=== PATIENT | female | born 1995 | race American Indian/Alaskan Native ===

== ENCOUNTER 2018-04-09 14:18 | Emergency (ER) | payer BC ==
[2018-04-09 15:28] VITALS: BP 132/78
== END 2018-04-09 15:25 | disposition left against medical advice (07) ==
LOC: ED 14:18
DX: R56.9 Unspecified convulsions (principal); Z53.21 Procedure and treatment not carried out due to patient leaving prior to being seen by health care provider

== ENCOUNTER 2021-02-15 01:14 | Emergency (ER) | payer MEDICARE ==
[2021-02-15 02:27] LABS: Basophils % (Auto) 0.9 % (0.0-1.8); Eosinophils % (Auto) 0.3 % (0.0-4.3); Hematocrit 38.7 % (30.3-42.9); Lymphocytes # (Auto) 1.1 K/mm3 (1.2-5.4); Lymphocytes % (Auto) 22.3 % (13.4-35.0); Mean Corpuscular HGB Conc 34 % (30-34); Mean Corpuscular Volume 88 fl (79-97); Monocytes # (Auto) 0.3 K/mm3 (0.0-0.8); Monocytes % (Auto) 5.3 % (0.0-7.3); Platelet Count 136 K/mm3 (140-440); Red Blood Count 4.38 M/mm3 (3.65-5.03); Red Cell Distribution Width 13.3 % (13.2-15.2)
[2021-02-15 02:28] LABS: Blood Urea Nitrogen 11 mg/dL (7-17); Calcium 8.8 mg/dL (8.4-10.2); Hemolysis Index 4
[2021-02-15 02:32] LABS: BUN/Creatinine Ratio 16
--- NOTE | 2021-02-15 02:32 | Emergency Department Report ---
ED Psych HPI - General Chief Complaint: Psych Stated Complaint: SI/DRUG OD Time Seen by Provider: 02/15/21 02:14 Source: patient Mode of arrival: Ambulatory - History of Present Illness Initial Comments: Patient is 25 years old female with history of schizophrenia. Patient brought to the emergency room for evaluation of possible suicidal attempt. Patient stated that she did not took her medication for the last 7 days and she decided to take it altogether at one time. Patient stated that she took 7 tablets of Vraylar 1.5 mg and 5 tablets of Ativan 0.5 mg. Patient stated that she did not want to kill herself. Patient also found to have multiple abrasion to the left thigh. Bleeding controlled. Patient also had old scars from previous self injury to the left thigh and left forearm. Patient admitted that she is hearing voices but she is refusing to say what they are telling her. She denied visual hallucination. Patient denied also homicidal ideation. Poison control contacted and advised supportive care. MD Complaint: suicidal ideation -: Sudden, This evening Associated Psychiatric Symptoms: suicidal ideation, auditory hallucinations Associated Symptoms: denies other symptoms If Self Harm: admits thoughts of, has acted on plan, intentional overdose, self- inflicted trauma - Related Data Allergies Allergy/AdvReac Type Severity Reaction Status Date / Time steroids Allergy Unknown Uncoded 02/15/21 01:37 ED Review of Systems ROS: Stated complaint: SI/DRUG OD Other details as noted in HPI Comment: All other systems reviewed and negative Constitutional: denies: chills, fever Respiratory: denies: cough, shortness of breath, SOB with exertion Cardiovascular: denies: chest pain, palpitations Gastrointestinal: denies: abdominal pain Musculoskeletal: denies: back pain Neurological: denies: headache, weakness Psychiatric: depression, auditory hallucinations, suicidal thoughts. denies: visual hallucinations, homicidal thoughts ED Past Medical Hx - Past Medical History Previous Medical History?: Yes Hx Seizures: Yes - Surgical History Past Surgical History?: No - Social History Smoking Status: Never Smoker Substance Use Type: Alcohol, Marijuana ED Physical Exam - General Limitations: No Limitations General appearance: alert, in no apparent distress - Head Head exam: Present: atraumatic, normocephalic, normal inspection - Eye Eye exam: Present: normal appearance, PERRL - ENT ENT exam: Present: normal exam, normal orophraynx, mucous membranes moist - Neck Neck exam: Present: normal inspection, full ROM. Absent: tenderness, meningismus - Respiratory Respiratory exam: Present: normal lung sounds bilaterally - Cardiovascular Cardiovascular Exam: Present: regular rate, normal rhythm, normal heart sounds - GI/Abdominal GI/Abdominal exam: Present: soft, normal bowel sounds. Absent: distended, tenderness, guarding, rebound, rigid, organomegaly, mass, bruit, pulsatile mass, hernia - Extremities Exam Extremities exam: Present: normal inspection, full ROM, normal capillary refill. Absent: tenderness, pedal edema, calf tenderness - Back Exam Back exam: Present: normal inspection, full ROM. Absent: CVA tenderness (R), CVA tenderness (L) - Neurological Exam Neurological exam: Present: alert, oriented X3, CN II-XII intact, normal gait, reflexes normal. Absent: motor sensory deficit - Psychiatric Psychiatric exam: Present: normal mood - Skin Skin exam: Present: warm, intact, normal color ED Course Vital Signs 02/15/21 02/15/21 02/15/21 01:32 06:00 09:04 Temperature 98.6 F 98.5 F 98.0 F Pulse Rate 92 H 75 82 Respiratory 16 18 20 Rate Blood Pressure 120/64 Blood Pressure 105/58 138/74 [Left] O2 Sat by Pulse 98 99 98 Oximetry ED Medical Decision Making - Lab Data Result diagrams: 02/15/21 01:42 02/15/21 01:42 - Medical Decision Making Patient is 25 years old female with history of schizophrenia. Patient brought to the emergency room for evaluation of possible suicidal attempt. Patient s tated that she did not took her medication for the last 7 days and she decided to take it altogether at one time. Patient stated that she took 7 tablets of Vraylar 1.5 mg and 5 tablets of Ativan 0.5 mg. Patient stated that she did not want to kill herself. Patient also found to have multiple abrasion to the left thigh. Bleeding controlled. Patient also had old scars from previous self injury to the left thigh and left forearm. Patient admitted that she is hearing voices but she is refusing to say what they are telling her. She denied visual hallucination. Patient denied also homicidal ideation. Poison control contacted and advised supportive care. Labs reviewed and is unremarkable. Patient remained alert, oriented x3 in no acute distress. No drowsiness. Patient is medically cleared to be evaluated by psychiatric team. Critical care attestation.: If time is entered above; I have spent that time in minutes in the direct care of this critically ill patient, excluding procedure time. ED Disposition Clinical Impression: Acute psychosis, Drug overdose, intentional Disposition: [id number]/TX-[id number] ANOTHER TYPE [facility]TH[facility]ARE Is pt being admited?: No Condition: Stable Referrals: PRIMARY CARE, [Primary Care Provider] - 3-5 Days
[2021-02-15 03:49] LABS: Alanine Aminotransferase 9 units/L (7-56); Albumin 4.4 g/dL (3.9-5)
[2021-02-15 03:56] LABS: Bilirubin,Direct < 0.2 mg/dL (0-0.2); Hepatitis B Surface Antigen Non-Reactive (Negative); Hepatitis C Virus Antibody Non-Reactive (NonReactive)
[2021-02-15] MEDS ORDERED: TETANUS,DIPH,PERTUSS(ACELL) VACCINE 0.5 ML SYRINGE IM ONE (05:21)
[2021-02-15 10:06] VITALS: BP 138/74
--- NOTE | 2021-02-15 10:54 | Consultation ---
History of Present Illness - Reason for Consult Consult date: 02/15/21 Reason for consult: SI/OD - History of Present Psychiatric Illness Per ED Note: Patient is 25 years old female with history of schizophrenia. Patient brought to the emergency room for evaluation of possible suicidal attempt. Patient stated that she did not took her medication for the last 7 days and she decided to take it altogether at one time. Patient stated that she took 7 tablets of Vraylar 1.5 mg and 5 tablets of Ativan 0.5 mg. Patient stated that she did not want to kill herself. Patient also found to have multiple abrasion to the left thigh. Bleeding controlled. Patient also had old scars from previous self injury to the left thigh and left forearm. Patient admitted that she is hearing voices but she is refusing to say what they are telling her. She denied visual hallucination. Patient denied also homicidal ideation. Poison control contacted and advised supportive care. 25y/o Belle [place] was seen today, She appears withdrawn and makes poor eye contact. She appears to be responding to internal stimuli. She's talking very low almost at a whisper. She's not forthcoming about the situation as to why she's here. The patient says "I took my medication in surplus because I had missed some days." The patient says "I wasn't trying to kill myself." She then tells me that "I was having an episode and I took them because I wanted it to stop and make it go away." The patient verbalizes "hearing voices." But states "I'm not sure what they are saying." She then denies hearing voices and state, "that was yesterday." The patient has old scars to both of her arms that appear to be in various stages of healing. PAST PSYCHIATRIC HISTORY: Diagnoses: schizophrenia Suicide attempts or Self-harm behavior: Yes Prior psychiatric hospitalizations: Yes Substance Abuse history: THC Previous psychiatric medications tried: Vraylar, ativan Outpatient treatment:Yes PAST MEDICAL HISTORY: None reported Family Psychiatric History: None reported or documented SOCIAL HISTORY Marital Status: Single Living Arrangements: with girlfriend Employment Status: Disabled Access to guns/weapons: Denies Education: high school History of Abuse: Denies Legal History: None reported REVIEW OF SYSTEMS Constitutional: Negative for weight loss ENT: Negative for stridor Respiratory: Negative for cough or hemoptysis All other systems reviewed and are negative MENTAL STATUS EXAMINATION General Appearance and Behavior: Age appropriate, good hygiene, not wearing appropriate clothes, poor eye contact, withdrawn Cooperation: Participating/engaged Psychomotor Behavior: Psychomotor normal Mood: "depressed" Affect and affective range: restricted Thought Process: illogical, hallucinations Speech: Normal tone and pace Thought Content Suicidal Ideation: Yes Homicidal Ideation: Denies Hallucinations: Auditory Delusions: paranoid Impulse Control: Impaired Insight and Judgment: poor insight and judgment Memory: Limited Attention: Divided attention impaired Orientation: a/o x 3 Assessment and Plan (1) Schizophrenia Current Visit: Yes Status: Acute Treatment Plan 1013 Will not give any antipsychotic at this point, as the patient is covered in this area, Vraylar has an extended half-life. Vistaril 25mg po q6h prn anxiety Prozac 10mg po daily Trazodone 50mg po qhs Sitter: Defer to primary Medical: Per primary Disposition: Recommend acute psychiatric inpatient treatment Will follow. Thank you for this consult. Case staffed with Dr. Cardona. Medications and Allergies Allergies Allergy/AdvReac Type Severity Reaction Status Date / Time steroids Allergy Unknown Uncoded 02/15/21 01:37 Mental Status Exam - Vital signs Last Vital Signs Temp 98.0 F 02/15/21 09:04 Pulse 82 02/15/21 09:04 Resp 20 02/15/21 09:04 BP 138/74 02/15/21 09:04 Pulse Ox 98 02/15/21 09:04 Results Result Diagrams: 02/15/21 01:42 02/15/21 01:42 Abnormal lab results 02/15/21 02/15/21 02/15/21 Range/Units 01:42 01:42 01:42 Plt Count 136 L (140-440) K/mm3 Lymph # (Auto) 1.1 L (1.2-5.4) K/mm3 Seg Neutrophils % 71.2 H (40.0-70.0) % Salicylates < 0.3 L (2.8-20.0) mg/dL Acetaminophen 5.0 L (10.0-30.0) ug/mL All other labs normal.
[2021-02-15] MEDS ORDERED: FLUoxetine 10 MG TAB PO SCH (12:00)
[2021-02-15] MEDS ORDERED: hydrOXYzine PAMOATE 25 MG CAP PO PRN (12:00)
[2021-02-15 12:10] LABS: Bilirubin,Urine NEG (Negative); Blood,Urine LG (Negative); Color,Urine Yellow (Yellow); Mucus,Urine 3+ /HPF; Urobilinogen,Urine < 2.0 mg/dL (<2.0)
[2021-02-15 12:30] LABS: Amphetamine Screen,Urine Negative; Benzodiazepines Screen,Urine Negative; Cocaine Screen,Urine Negative; Methadone Screen,Urine Negative; Opiate Screen,Urine Negative
[2021-02-15 12:44] LABS: Cannabinoid Screen,Urine Positive
--- NOTE | 2021-02-15 13:02 | Emergency Department Report ---
Blank Doc - Documentation Documentation: Requested by [facility] to execute 1013. Labs reviewed. Patient examined. Medically appropriate for psychiatric admission. 1013 executed.
[2021-02-15] MEDS ORDERED: traZODone 50 MG TAB PO SCH (22:00)
== END 2021-02-15 19:40 | disposition other institution (70) ==
LOC: EEVIPCON 01:14 → ED 01:14
DX: T50.902A Poisoning by unspecified drugs, medicaments and biological substances, intentional self-harm, initial encounter (principal); F23 Brief psychotic disorder; F12.90 Cannabis use, unspecified, uncomplicated; F25.9 Schizoaffective disorder, unspecified; Z88.8 Allergy status to other drugs, medicaments and biological substances; Z86.69 Personal history of other diseases of the nervous system and sense organs; Y92.89 Other specified places as the place of occurrence of the external cause
CPT/HCPCS: 36415; 80048; 80074; 80076; 80307; 80320; 81001; 84703; 85025; 87086; 87806; 90471; 90715; G0480